=== PATIENT | male | born 1980 | race Caucasian/White ===

== ENCOUNTER 2017-03-29 01:13 | Emergency (ER) | payer OTHER ==
[~2017-03-29] VITALS: Ht 177.8 cm; Wt 61.5 kg
[2017-03-29 01:15] VITALS: RESP 19; O2SAT 100
[2017-03-29 01:27] VITALS: BP 134/80; PULSE 97; RESP 16; O2SAT 97
[2017-03-29] MEDS ORDERED: SODIUM CHLOR 0.9% 1000 ML INJ 1,000 ML IV SCH (01:27)
[2017-03-29] MEDS ORDERED: SODIUM CHLORIDE 0.9% FLUSH 10 ML FLUSH IVF PRN (01:30)
[2017-03-29] MEDS ORDERED: LORazepam 2 MG/ML VIAL IV PUSH ONE (01:30)
[2017-03-29] MEDS ORDERED: THIAMINE INJ 100 MG in SODIUM CHLORIDE 0.9% INJ 100 ML IV ONE (01:30)
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
[2017-03-29 01:51] LABS: AUTOMATED NEUTROPHIL # 4.7 TH/MM3 (1.8-7.7); BASOPHIL # 0.1 TH/MM3 (0-0.2); BASOPHIL % 1.3 % (0.0-2.0); EOSINOPHIL # 0.2 TH/MM3 (0-0.4); EOSINOPHIL % 1.8 % (0.0-4.0); HEMATOCRIT 47.7 % (39.0-51.0); HEMO FLAGS DIFF FINAL; LYMPH % 38.5 % (9.0-44.0); LYMPHOCYTE # 3.7 TH/MM3 (1.0-4.8); MEAN CELL VOLUME 94.1 FL (80.0-100.0); MEAN CORPUSCULAR HEMOGLOBIN 32.2 PG (27.0-34.0); MEAN CORPUSCULAR HGB CONC 34.2 % (32.0-36.0); MONO % 9.7 % (0.0-8.0); NEUT % 48.7 % (16.0-70.0); PLATELET COUNT 223 TH/MM3 (150-450); RED BLOOD COUNT 5.07 MIL/MM3 (4.50-5.90); RED CELL DISTRIBUTION WIDTH 14.4 % (11.6-17.2); WHITE BLOOD COUNT 9.6 TH/MM3 (4.0-11.0)
[2017-03-29 02:11] LABS: BICARBONATE 28.1 MEQ/L (21.0-32.0)
[2017-03-29 04:31] VITALS: BP 130/73; PULSE 94; RESP 16; O2SAT 98
[2017-03-29 10:01] VITALS: BP 108/52
[2017-03-29 10:03] VITALS: BP 108/52; PULSE 84; RESP 16; O2SAT 98
== END 2017-03-29 10:10 | disposition home or self-care (01) ==
LOC: NEPD 01:13
DX: F10.129 Alcohol abuse with intoxication, unspecified (principal); F17.200 Nicotine dependence, unspecified, uncomplicated; R45.1 Restlessness and agitation; Y90.8 Blood alcohol level of 240 mg/100 ml or more
CPT/HCPCS: 80048; 80307; 85025; 96374; 96375; 99285; J2060; J3411; J7030

== ENCOUNTER 2017-04-19 14:29 | Emergency (ER) | payer SELFPAY ==
[~2017-04-19] VITALS: Ht 177.8 cm; Wt 68.7 kg
[2017-04-19 14:47] VITALS: BP 119/65; PULSE 68; RESP 16; TEMP 98.2; O2SAT 99
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
== END 2017-04-19 16:35 | disposition home or self-care (01) ==
LOC: PHEFT 14:29
DX: S09.90XA Unspecified injury of head, initial encounter (principal); S01.01XA Laceration without foreign body of scalp, initial encounter; Z72.0 Tobacco use; W18.30XA Fall on same level, unspecified, initial encounter
CPT/HCPCS: 99283

== ENCOUNTER 2017-07-23 19:57 | Emergency (ER) | payer OTHER ==
[~2017-07-23] VITALS: Ht 177.8 cm; Wt 75.0 kg
[2017-07-23 20:05] VITALS: BP 128/85; PULSE 108; RESP 18; TEMP 98.9
[2017-07-23] MEDS ORDERED: HALOPERIDOL LACTATE 5 MG/ML AMP ONE (20:14)
[2017-07-23] MEDS ORDERED: LORazepam 2 MG/ML VIAL IM ONE (20:15)
[2017-07-23] MEDS ORDERED: HALOPERIDOL LACTATE 5 MG/ML AMP IM ONE (20:15)
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
[2017-07-23 21:55] VITALS: BP 136/63; PULSE 67; RESP 14; O2SAT 97
[2017-07-24 06:24] VITALS: BP 129/68; PULSE 89; RESP 14; O2SAT 97
== END 2017-07-24 06:42 | disposition home or self-care (01) ==
LOC: NEPC 19:57
DX: F10.129 Alcohol abuse with intoxication, unspecified (principal); F12.90 Cannabis use, unspecified, uncomplicated
CPT/HCPCS: 96372; 99283; J1630; J2060